=== PATIENT | male | born 1940 | race Caucasian/White ===

== ENCOUNTER 2016-05-13 21:21 | Emergency (ER) | payer OTHER ==
[~2016-05-13] VITALS: Ht 175.3 cm; Wt 112.8 kg
[~2016-05-13 21:21] MED LIST: ATEN-173 PO; CITA40TA4 PO; FLUT0.15 NAE; LISI-461 PO; OMEP40CA PO; VNTHFA/IN INH
[2016-05-13 21:25] VITALS: BP 158/91; PULSE 58; TEMP 36.9; O2SAT 97; Ht 175.3 cm; Wt 112.8 kg
[2016-05-13] MEDS ORDERED: OMEP40CA41 PO (21:43)
[2016-05-13] MEDS ORDERED: ACET-1256 PO (21:44)
--- NOTE | 2016-05-13 22:26 | DIAGNOSTIC IMAGING REPORT ---
RIGHT THUMB 3 VIEWS CLINICAL HISTORY: Right thumb injury. FINDINGS: 3 views of the right thumb are obtained. No prior studies are available for comparison at the time of dictation. The skeletal structures are osteopenic. No fracture is seen. Mild arthritic change is present at the first carpometacarpal, metacarpophalangeal, and interphalangeal joints. Mild soft tissue swelling is suggested in the thumb. No radiodense foreign body seen. IMPRESSION: 1. Mild soft tissue swelling with no fracture identified. 2. Osteopenia and minimal arthritic change as above. Electronically signed by: Karlos Soria M.D. 05/13/2016 10:24 PM Dictated Date/Time: 05/13/2016 10:23 PM
--- NOTE | 2016-05-13 22:53 | EMERGENCY ROOM VISIT NOTE ---
ED Visit Note First contact with patient: 21:30 CHIEF COMPLAINT: Finger injury HISTORY OF PRESENT ILLNESS: This 76-year-old male patient presents to the emergency department ambulatory after injuring the right thumb earlier today. The patient reports that his thumb got stuck in a cranking system of his crossbow. The patient rates the pain as throbbing and and 7/10. The patient has full range of motion of the finger. No numbness or tingling. No lacerations. No other injuries. The patient has not had previous fracture to this finger. The patient has taken no medication for the pain. REVIEW OF SYSTEMS: A 6 system review of systems was completed with positives and pertinent negatives in the HPI. ALLERGIES: Sulfa drugs MEDICATIONS: See med list PMH: Hypertension SOCIAL HISTORY: The patient lives locally with his family. Nonsmoker. PHYSICAL EXAM: Vital Signs: Reviewed Nurse's notes, vital signs stable. GENERAL : This is a 76-year-old male, in no acute distress, but appears to be in pain, well-developed, well-nourished. MUSCULOSKELETAL: There is no deformity of the right thumb. There is a small subungual hematoma of the proximal portion of the nail. There are no lacerations. The patient has full flexion and and extension of the thumb, strength to resistance is normal. The proximal phalanx is tender to palpation. Capillary refill less than 2 seconds. No tenderness of the remaining fingers or hand. Full range of motion of the wrist. NEURO: Alert and oriented to person, place, and time. Normal sensation to light and sharp touch. EMERGENCY DEPARTMENT COURSE: I examined the patient. An x-ray of the right thumb finger was reviewed by myself and radiology and showed no acute fractures. The patient does have a subungual hematoma, but this is not causing him much pain and I do not feel it needs drained at this time. The finger was immobilized by a metal finger splint under my direction and the position was satisfactory. Neurovascular status rechecked and intact. The patient was independently evaluated by Dr. Milton, ED attending physician, who agreed with my assessment and treatment plan. The patient was discharged home in good condition. DIAGNOSIS: Right thumb injury Problem List Medical Problems: (1) Cholelithiasis Status: Resolved Surgical Problems: (1) Hx of cholecystectomy Status: Resolved Current/Historical Medications Scheduled Acetaminophen (Tylenol), 1,000 MG PO DAILY Atenolol (Tenormin), 25 MG PO DAILY Citalopram (Citalopram Hydrobromide), 40 MG PO DAILY Lisinopril (Zestril), 10 MG PO DAILY Omeprazole (Prilosec), 40 MG PO DAILY Allergies Coded Allergies: Sulfa Drugs (Verified Allergy, Unknown, 05/13/16) Vital Signs Date Time Temp Pulse Resp B/P Pulse Ox O2 Delivery O2 Flow Rate FiO2 05/13/16 21:25 36.9 58 18 158/91 97 Room Air Departure Information Dispostion Home / Self-Care Condition GOOD Referrals Sunny Rowland M.D. (PCP) Patient Instructions My [facility] Additional Instructions You have been treated in the Emergency Department for thumb Pain. For pain control, you can use the following [id number] medicines (if >12 yo): - Regular strength (325mg/tab) Tylenol (acetaminophen) 2 tabs every 4-6 hours as needed. Do not exceed 12 tablets in a 24 hour period. Avoid taking more than 4 grams (4000 mg) of Tylenol per day. This includes any other sources of acetaminophen you may take on a regular basis. - Regular strength (200 mg/tab) Advil (ibuprofen) 1-2 tabs every 4-6 hours as needed. Do not exceed a dose of 3200 mg per day. If this is a recent injury (<24 hrs), ice can be applied to the area of pain for the first 3 days to help decrease pain and inflammation. Wear the splint for the next 2-3 days, then as needed. Follow-up with your primary care provider if you have any new/worsening symptoms. Return to the Emergency Department if your current symptoms worsen despite treatment course outlined above, or if you develop any of the following symptoms : intractable pain despite aforementioned treatment course or new onset of numbness or tingling of the fingers.
== END 2016-05-13 22:56 | disposition home or self-care (01) ==
LOC: C.EDB 21:22 → C.EDD 22:56
DX: S69.92XA Unspecified injury of left wrist, hand and finger(s), initial encounter (principal); W22.8XXA Striking against or struck by other objects, initial encounter; I10 Essential (primary) hypertension; Z87.19 Personal history of other diseases of the digestive system; Z90.49 Acquired absence of other specified parts of digestive tract; Z79.899 Other long term (current) drug therapy; Z88.2 Allergy status to sulfonamides